=== PATIENT | male | born 1955 | race Caucasian/White ===

== ENCOUNTER → 2017-01-21 | Outpatient (CLI) | payer OTHER | END | disposition home or self-care (01) | LOC: CFH 12:20 | PROVIDERS: ATTEND Family Medicine | DX: R06.02 Shortness of breath (principal); R05 Cough; R50.9 Fever, unspecified | CPT/HCPCS: 71020 ==

== ENCOUNTER 2019-04-22 12:18 | Observation (INO) | payer OTHER ==
[~2019-04-22] VITALS: Ht 172.7 cm; Wt 78.9 kg
[2019-04-23 06:38] VITALS: BP 107/71
== END 2019-04-23 09:30 | disposition home or self-care (01) ==
LOC: ED 15:09 → EDIP 15:46 → INTOOBSV 15:46 → 4NOR 16:07 → DCLOUNGE 04-23 09:15
PROVIDERS: ADMIT Surgery; ATTEND Surgery
DX: A41.9 Sepsis, unspecified organism (principal); K35.80 Unspecified acute appendicitis; I10 Essential (primary) hypertension; Z87.891 Personal history of nicotine dependence
CPT/HCPCS: 36415; 44970; 74177; 80053; 81001; 83690; 85025; 87086; 88304; 93005; 96365; 96375; 96376; 99291; G0378; J0330; J1100; J1885; J2250; J2270; J2405; J2704; J3010; J3490; J7030; Q9967

== ENCOUNTER → 2020-01-12 | Outpatient (CLI) | payer OTHER ==
[~2020-01-12] MED LIST: AMOX1TAB64 PO; ATOR20TA86 PO; BENA20TA54 PO; HYDR-3240 PO
== END | disposition home or self-care (01) ==
LOC: CVU 08:34
PROVIDERS: ATTEND Surgery
DX: I71.4 Abdominal aortic aneurysm, without rupture (principal); I10 Essential (primary) hypertension; Z87.891 Personal history of nicotine dependence
CPT/HCPCS: 93978

== ENCOUNTER → 2020-11-28 | Outpatient (CLI) | payer OTHER ==
[~2020-11-28] MED LIST changes: +HYDR-1067 PO; -HYDR-3240 PO
== END | disposition home or self-care (01) ==
LOC: RAD 07:42
PROVIDERS: ATTEND Family Medicine
DX: I71.4 Abdominal aortic aneurysm, without rupture (principal)
CPT/HCPCS: 93978

== ENCOUNTER → 2020-12-21 | Outpatient (CLI) | payer OTHER ==
[~2020-12-21] MED LIST changes: +OMNIPAQUE 350 MG/ML, 100ML BOTTLE ONE
== END | disposition home or self-care (01) ==
LOC: CFH 14:13
PROVIDERS: ATTEND Family Medicine
DX: I71.4 Abdominal aortic aneurysm, without rupture (principal)
CPT/HCPCS: 71275; 74175; 82565; Q9967

== ENCOUNTER → 2021-01-13 | Outpatient (CLI) | payer OTHER ==
[~2021-01-13] MED LIST changes: +ASPI81TA45 PO; -HYDR-1067 PO; +HYDR-2214 PO; +MULT-658 PO; +OMEPRAZOLE PO; -OMNIPAQUE 350 MG/ML, 100ML BOTTLE ONE
[2021-01-13 11:36] LABS: BASOPHILS % (AUTO) 1 % (0-1); EOSINOPHILS % (AUTO) 4 % (1-7); LYMPHOCYTES % (AUTO) 27 % (22-44); MEAN CORPUSCULAR HEMOGLOBIN 33.2 pg (27.5-34.5); MEAN PLATELET VOLUME 6.6 fL (7.4-10.4); MONOCYTES % (AUTO) 11 % (2-9); NEUTROPHILS % (AUTO) 58 % (42-75); PLATELET COUNT 305 x10^3/uL (130-400); RED CELL DISTRIBUTION WIDTH 13.6 % (9.4-14.8)
[2021-01-13 11:38] LABS: MD NO
[2021-01-13 11:53] LABS: ALANINE AMINOTRANSFERASE 35 U/L (12-78); ALBUMIN 3.8 g/dL (3.4-5.0); ANION GAP 4 mmol/L (5-15); CALCIUM 8.6 mg/dL (8.5-10.1); CHLORIDE 108 mmol/L (98-107); CREATININE 0.87 mg/dL (0.7-1.3)
[2021-01-13 11:56] LABS: ALKALINE PHOSPHATASE 115 U/L (45-117); BILIRUBIN,TOTAL 0.5 mg/dL (0.2-1.0)
== END | disposition home or self-care (01) ==
LOC: STAR 10:43
PROVIDERS: ATTEND Surgery
DX: Z01.812 Encounter for preprocedural laboratory examination (principal); Z20.822 Contact with and (suspected) exposure to COVID-19
CPT/HCPCS: 36415; 71046; 80053; 85025; 93005; U0003; U0005

== ENCOUNTER 2021-01-19 05:40 | Inpatient (IN) | payer OTHER ==
[~2021-01-19] VITALS: Ht 170.2 cm; Wt 84.4 kg
[2021-01-19] MEDS ORDERED: LACTATED RINGERS 1,000 ML IV SCH (06:30)
[2021-01-19] MEDS ORDERED: LIDOCAINE-MPF 1%, 2ML INFIL ONE (06:30)
[2021-01-19] MEDS ORDERED: CHLORHEXIDINE 15 ML UDC PO ONE (06:30)
[2021-01-19] MEDS ORDERED: AMLOD/BENAZP PO (06:54)
[2021-01-19] MEDS ORDERED: BUPIVACAINE/PF 0.5% ONE (07:10)
[2021-01-19] MEDS ORDERED: HEPARIN 1,000 UNITS/ML, 10ML ONE (07:10)
[2021-01-19] MEDS ORDERED: HEPARIN 5,000 UNITS/ML, 1ML ONE (07:10)
[2021-01-19] MEDS ORDERED: THROMBIN 20,000 UNIT VIAL TP ONE (07:10)
[2021-01-19] MEDS ORDERED: EPINEPHRINE 1 MG/ML, 1ML ONE (07:11)
[2021-01-19] MEDS ORDERED: PROTAMINE SULFATE 10 MG/ML, 25ML ONE ×2 (07:11→07:56)
[2021-01-19] MEDS ORDERED: PROPOFOL 50 ML ONE (07:11)
[2021-01-19] MEDS ORDERED: MIDAZOLAM 1 MG/ML, 2ML ONE (07:12)
[2021-01-19] MEDS ORDERED: FENTANYL PF 250 MCG/5ML ONE (07:12)
[2021-01-19] MEDS ORDERED: ASPIRIN 81 MG TABLET EC PO ONE (07:22)
[2021-01-19] MEDS ORDERED: ASPIRIN 81 MG TABLET EC ONE (07:27)
[2021-01-19] MEDS ORDERED: HEPARIN 1,000 UNITS/ML, 30ML ONE (07:56)
[2021-01-19] MEDS ORDERED: ROCURONIUM 10MG/ML,5ML ONE ×2 (08:08)
[2021-01-19] MEDS ORDERED: CEFAZOLIN 1,000 MG ONE ×2 (08:08)
[2021-01-19] MEDS ORDERED: DEXAMETHASONE 4 MG/ML, 5ML ONE (08:08)
[2021-01-19] MEDS ORDERED: ONDANSETRON 2MG/ML, 2ML ONE (08:08)
[2021-01-19] MEDS ORDERED: PROMETHAZINE 25 MG/ML, 1ML IVPush PRN (09:00)
[2021-01-19] MEDS ORDERED: DIPHENHYDRAMINE 50 MG/ML, 1ML IVPush PRN (09:00)
[2021-01-19] MEDS ORDERED: ONDANSETRON 2MG/ML, 2ML IVPush PRN (09:00)
[2021-01-19] MEDS ORDERED: FENTANYL PF 100 MCG/2ML IV PRN (09:00)
[2021-01-19] MEDS ORDERED: hydrALAzine 20 MG/ML, 1ML IV PRN (09:00)
[2021-01-19] MEDS ORDERED: DIAZEPAM 5 MG/ML, 2ML IVPush PRN (09:00)
[2021-01-19] MEDS ORDERED: morphine SULFATE 10 MG/ML, 1ML IVPush PRN (09:00)
[2021-01-19] MEDS ORDERED: ACETAMINOPHEN 325 MG TABLET PO PRN (09:00)
[2021-01-19] MEDS ORDERED: LABETALOL 5MG/ML, 20ML IV PRN (09:00)
[2021-01-19] MEDS ORDERED: EPHEDRINE 50 MG/ML, 1ML IM PRN (09:00)
[2021-01-19] MEDS ORDERED: MEPERIDINE/PF 25MG/0.5ML IVPush PRN (09:00)
[2021-01-19] MEDS ORDERED: OXYcodone 5 MG/5 ML ORAL.SOL UDC PO PRN (09:00)
[2021-01-19] MEDS ORDERED: EPHEDRINE 50 MG/ML, 1ML IVPush PRN (09:00)
[2021-01-19] MEDS ORDERED: SUGAMMADEX 200 MG/2 ML IVPush ONE (09:07)
[2021-01-19] MEDS ORDERED: MEPERIDINE/PF 25MG/ML,1ML ONE (09:53)
[2021-01-19] MEDS ORDERED: HYDROcodone/APAP 5/325 TABLET PO PRN (12:00)
[2021-01-19] MEDS ORDERED: ONDANSETRON 2MG/ML, 2ML IV PRN (12:00)
[2021-01-19 14:42] VITALS: BP 135/78
[2021-01-19 19:47] VITALS: BP 152/74
[2021-01-19] MEDS ORDERED: ATORVASTATIN 40 MG TABLET PO SCH (21:00)
[2021-01-19] MEDS: SODIUM CHLORIDE FLUSH 10ML SYR IVF SCH (21:43)
[2021-01-19] MEDS: LACTATED RINGERS 1,000 ML IV SCH (21:43)
[2021-01-20 00:36] VITALS: BP 119/72
[2021-01-20 04:00] VITALS: BP 141/83
[2021-01-20] MEDS: LACTATED RINGERS 1,000 ML IV SCH (06:00)
[2021-01-20] MEDS ORDERED: OMEPRAZOLE 20 MG CAPSULE.DR PO SCH (06:00)
[2021-01-20] MEDS ORDERED: HEPARIN 5,000 UNITS/ML, 1ML SQ SCH (06:00)
[2021-01-20 07:23] VITALS: BP 160/92
[2021-01-20] MEDS: SODIUM CHLORIDE FLUSH 10ML SYR IVF SCH (07:50)
[2021-01-20] MEDS ORDERED: BENAZEPRIL 20 MG TABLET PO SCH (09:00)
[2021-01-20] MEDS ORDERED: MULTIVITAMIN 1 TABLET PO SCH (09:00)
[2021-01-20] MEDS ORDERED: AMLODIPINE 5 MG TABLET PO SCH (09:00)
== END 2021-01-20 09:15 | disposition home or self-care (01) | DRG 269 ==
LOC: ORIP 05:40 → EDSTATUS 07:30 → 4NE 11:07 → DCLOUNGE 01-20 09:05
PROVIDERS: ADMIT Surgery; ATTEND Surgery
PROC: B41D1ZZ Fluoroscopy of Aorta and Bilateral Lower Extremity Arteries using Low Osmolar Contrast (ICD-10-PCS; 2021-01-19)
PROC: 04V03DZ Restriction of Abdominal Aorta with Intraluminal Device, Percutaneous Approach (ICD-10-PCS; principal; 2021-01-19 07:30)
DX: I71.4 Abdominal aortic aneurysm, without rupture (principal)
CPT/HCPCS: 34705; 36415; 86850; 86900; C1725; G0378; J0171; J0690; J1100; J1644; J2175; J2250; J2405; J2704; J2720; J3010; C1751; C1760; C1768; C1769; C1894; J7120

== ENCOUNTER → 2021-03-09 | Outpatient (CLI) | payer OTHER ==
[~2021-03-09] MED LIST changes: +AMLOD/BENAZP PO; +OMNIPAQUE 350 MG/ML, 100ML BOTTLE ONE
== END | disposition home or self-care (01) ==
LOC: CFH 14:08
PROVIDERS: ATTEND Physician Assistant Medical
DX: I71.4 Abdominal aortic aneurysm, without rupture (principal); N28.1 Cyst of kidney, acquired; Z95.828 Presence of other vascular implants and grafts
CPT/HCPCS: 71275; 74174; 82565; Q9967